=== PATIENT | male | born 1980 | race Caucasian/White ===

== ENCOUNTER → 2024-07-03 06:35 | Day surgery (SDC) | payer OTHER, SELFPAY | LOC: GI 06:35 | PROVIDERS: ATTENDING PHYSICIAN Specialist | DX: Z09 Encounter for follow-up examination after completed treatment for conditions other than malignant neoplasm (principal); K57.30 Diverticulosis of large intestine without perforation or abscess without bleeding; K50.10 Crohn's disease of large intestine without complications; K63.5 Polyp of colon | CPT/HCPCS: 45385; 45380; 88305 ==